=== PATIENT | male | born 1980 | race Caucasian/White ===

== ENCOUNTER 2024-05-10 07:50 | Emergency (ER) | payer SELFPAY ==
--- OUTSIDE RECORDS SUMMARY | 2024-05-10 07:54 | XMS REPORT | Continuity of Care Document ---
Author Name Unknown Address [address] [place] [address] [employer] Address [address] [place] [address] [address] [place] [address] Care Team Providers Care Fund Director Name Role Phone ILYA COELHO Attending Clinician Unavailabl e Encounters Start Date/Time End Date/Time Encounter Type Admission Type Attending Clinicians Care Facility Care Department Encounter ID Source 2024-05-09 07:29:00 2024-05-09 08:09:00 Emergency ER ILYA COELHO [facility] [id number] [facility]
--- NOTE | 2024-05-10 08:51 | RAD REPORT ---
EXAMINATION: CT ABDOMEN AND PELVIS WITHOUT CONTRAST CLINICAL INDICATION: Abdominal pain. Flank pain TECHNIQUE: CT abdomen and pelvis was performed, as per department protocol. IV contrast and oral was not administered.Axial, sagittal and coronal reconstructions were obtained. One or more of the following dose reduction techniques were used: Automated exposure control, adjustment of the mA and/o r kV according to the patient size, and/or iterative reconstruction. Unless otherwise specified, incidental findings do not require dedicated imaging follow-up. [id number]. COMPARISON: No prior exam. FINDINGS: The lack of intravenous and contrast limits the sensitivity of this exam for evaluation of solid visc eral organs, vascular structures, and bowel. The liver, spleen, pancreas, adrenals and kidneys appear grossly normal No evidence of diverticulitis Normal appendix Mild anterior subluxation L4 on L5. Spondylolysis L4 Small left and [id number] right inguinal hernias containing fat IMPRESSION: No acute abnormality displayed
[2024-05-10] MEDS ORDERED: KETOROLAC 30 MG/ML INJ ONE (08:53)
[2024-05-10 08:56] LABS: Specific Gravity 1.012 (1.005-1.030); Urine Bilirubin NEGATIVE (Negative); Urine Blood Negative (Negative); Urine Clarity Clear (Clear); Urine Color Colorless (Yellow); Urine Glucose NEGATIVE (Negative); Urine Ketones NEGATIVE (Negative); Urine Microscopic Reflex YN NO UMIC; Urine Nitrite NEGATIVE (Negative); Urine Protein NEGATIVE (Negative); Urine Urobilinogen Normal (Normal); Urine pH 7.5 (5.0-7.0)
[2024-05-10 09:27] LABS: Absolute Eosinophils 0.1 K/uL (0-0.5); Absolute Lymphocytes (CBC) 2.2 K/uL (0.7-4.9); Absolute Monocytes 0.8 K/uL (0.1-1.3); Absolute Neutrophil 7.5 K/uL (1.8-8.0); Basophils % 0.4 % (0-1.3); Eosinophils % 0.9 % (0-4.4); Hematocrit 46.6 % (39.6-49.0); Hemoglobin 16.3 g/dL (13.6-17.9); Lymphocytes % 20.8 % (15.3-44.8); MCH 32.1 pg (27.0-35.0); MCV 91.6 fL (80-100); MPV 8.5 fL (7.6-11.3); Monocytes % 7.9 % (3.3-12.3); Nucleated Red Blood Cells % 0.1 % (0-0); Platelets 263 thou/uL (152-406); RBC Red Blood Cell Count 5.08 M/uL (4.33-5.43); Red Cell Distribution Width 13.1 % (12.1-15.2)
[2024-05-10 09:28] LABS: ALT/SGPT 24 U/L (16-61); AST/SGOT < 10 U/L (15-37); Albumin 3.6 g/dL (3.4-5.0); Alkaline Phosphatase 60 U/L (45-117); Anion Gap 6.9 mEq/L (5.0-15.0); BUN Blood Urea Nitrogen 9 mg/dL (7-18); Bicarbonate 32 mEq/L (21-32); Bilirubin Total 0.4 mg/dL (0.2-1.0); Creatine Phosphokinase 77 U/L (39-308); Globulin 3.5 g/dL (2.3-3.5); Glomerular Filtration Rate 109 ml/min (=/>90); Glucose Level 114 mg/dL (74-106); Lipase 251 U/L (13-75); Potassium 3.9 mEq/L (3.5-5.1); Protein, Total 7.1 g/dL (6.4-8.2); Sodium Level 141 mEq/L (136-145)
--- NOTE | 2024-05-10 10:00 | ER ---
Nurse's Notes [facility] Name: Estevan Silva Age: 43 yrs Sex: Male : 1980 Arrival Date: 05/10/2024 Time: 07:50 Bed 9 Private MD: Diagnosis: Low back pain Presentation: 05/10 08:00 Chief complaint: Patient states: kidney pain, worse on right than left, has been going iw on for a while, thought it was from my slipped disc, and my urine is dark, pain for 2 months. Coronavirus screen: At this time, the client does not indicate any symptoms associated with coronavirus-19. Ebola Screen: No symptoms or risks identified at this time. Initial Sepsis Screen: Does the patient meet any 2 criteria? No. Patient's initial sepsis screen is negative. Does the patient have a suspected source of infection? No. Patient's initial sepsis screen is negative. Risk Assessment: Do you want to hurt yourself or someone else? Patient reports no desire to harm self or others. Onset of symptoms was February 2024. 08:00 Method Of Arrival: Ambulatory iw 08:00 Acuity: KRISTINE 3 iw Historical: - Allergies: 08:02 PENICILLINS; iw - Home Meds: 08:02 None [Active]; iw - PMHx: 08:02 None; iw - PSHx: 08:02 None; iw - Immunization history:: Adult Immunizations Adult Immunizations not up to date. - Infectious Disease History:: Denies. - Social history:: Smoking status: Patient reports the use of cigarette tobacco products, smokes one pack cigarettes per day. - Family history:: not pertinent. Screenin:09 [facility] ED Fall Risk Assessment (Adult) History of falling in the last 3 months, iw including since admission No falls in past 3 months (0 pts) Confusion or Disorientation No (0 pts) Intoxicated or Sedated No (0 pts) Impaired Gait No (0 pts) Mobility Assist Device Used No (0 pt) Altered Elimination No (0 pt) Score/Fall Risk Level 0 - 2 = Low Risk Oriented to surroundings, Maintained a safe environment. Abuse screen: Denies threats or abuse. Nutritional screening: No deficits noted. Tuberculosis screening: No symptoms or risk factors identified. Assessment: 08:07 General: Appears uncomfortable, Behavior is cooperative. Pain: Complains of pain in iw lumbar area, left low back and right low back. Neuro: Level of Consciousness is awake, alert, obeys commands, Oriented to person, place, time, situation, Moves all extremities. Cardiovascular: Patient's skin is warm and dry. Respiratory: Respiratory effort is even, unlabored, Respiratory pattern is regular. GI: Abdomen is non-distended. : Reports dark colored urine. Derm: Skin is healthy with good turgor. Musculoskeletal: Range of motion: intact in all extremities. 08:08 Reassessment: pt ambulatory to bathroom with steady gait. iw 09:30 Reassessment: Patient appears in no apparent distress at this time. Patient and/or iw family updated on plan of care and expected duration. Pain level reassessed. Patient is alert, oriented x 3, equal unlabored respirations, skin warm/dry/pink. 10:40 Reassessment: Patient appears in no apparent distress at this time. iw Vital Signs: 08:00 BP 142 / 89; Pulse 63; Resp 16; Temp 98.1; Pulse Ox 100% on R/A; Weight 104.33 kg; iw Height 6 ft. 0 in. ; Pain 7/10; 08:00 Body Mass Index 31.19 (104.33 kg, 182.88 cm) iw 08:00 Pain Scale: Adult iw ED Course: 07:52 Patient arrived in ED. mr 08:01 Triage completed. iw 08:03 Arm band placed on. iw 08:05 Shantanu Mujica MD is Attending Physician. rt 08:07 Mabel Trotter, RN is Primary Nurse. iw 08:07 Patient has correct armband on for positive identification. Provided Education on: . iw 08:43 Urinalysis w/ reflexes Sent. nh2 08:45 CT Abd/Pelvis - Without Contrast In Process Unspecified. EDMS 08:56 CBC with Diff Sent. nh2 08:56 CMP Sent. nh2 08:56 Lipase Sent. nh2 08:56 Urinalysis w/ reflexes Sent. nh2 08:56 Inserted saline lock: 20 gauge in right antecubital area, using aseptic technique. nh2 Blood collected. Flushed with 10 mL NS. 10:39 No provider procedures requiring assistance completed. IV discontinued, intact, iw bleeding controlled, No redness/swelling at site. Pressure dressing applied. Administered Medications: 09:04 Drug: TORadol - Ketorolac IVP 15 mg IVP once Route: IVP; Site: right antecubital; iw 10:40 Drug: Paradox PO 10 mg-325 mg 1 tabs PO once Route: PO; iw 10:40 Follow up: Response: Medication administered at discharge. iw 10:40 Follow up: Response: No adverse reaction; Medication administered at discharge. iw 10:41 Follow up: Response: No adverse reaction iw 10:40 Drug: Dexamethasone IVP 10 mg IVP once; (not to exceed 40 mg) Route: IVP; Site: right iw antecubital; 10:40 Follow up: Response: Medication administered at discharge. iw 10:41 Follow up: Response: No adverse reaction iw Medication: 08:09 VIS not applicable for this client. iw Outcome: :59 Discharge ordered by MD. rt 10:39 Discharged to home ambulatory, with family, iw 10:39 Condition: good 10:39 Discharge instructions given to patient, family, Instructed on discharge instructions, follow up and referral plans. Demonstrated understanding of instructions, follow-up care, wound care, Prescriptions given X 2, 10:40 Patient left the ED. iw Signatures: Dispatcher [employer] EDMS Veda Martinez, Reg Reg mr Mabel Trotter, JULITA RN iw Shantanu Mujica MD MD rt Guillermo Deal, [facility] Corrections: (The following items were deleted from the chart) 08:02 08:00 Pulse 63bpm; Resp 16bpm; Pulse Ox 100% RA; Temp 98.1F; iw iw
--- NOTE | 2024-05-10 10:00 | EDPHYS ---
Physician Documentation [facility] Name: Estevan Silva Age: 43 yrs Sex: Male : 1980 Arrival Date: 05/10/2024 Time: 07:50 Bed 9 Private MD: ED Physician Shantanu Mujica HPI: 05/10 11:54 This 43 yrs old Male presents to ER via Ambulatory with complaints of Back Pain, rt Urinary Problem. 11:54 Patient presents to the ED with right-sided back pain, nonradiating has been chronic rt but worse over the past week. Patient reports a darker colored urine at that time but states that his urine is now clear. Denies abdominal pain, nausea, vomiting. Denies of acute complaints, symptoms are moderate in severity, no other aggravating or alleviating factors. Historical: - Allergies: 08:02 PENICILLINS; iw - Home Meds: 08:02 None [Active]; iw - PMHx: 08:02 None; iw - PSHx: 08:02 None; iw - Immunization history:: Adult Immunizations Adult Immunizations not up to date. - Infectious Disease History:: Denies. - Social history:: Smoking status: Patient reports the use of cigarette tobacco products, smokes one pack cigarettes per day. - Family history:: not pertinent. ROS: 11:54 Constitutional: Negative for fever, chills, and weight loss, Cardiovascular: Negative rt for chest pain, palpitations, and edema, Respiratory: Negative for shortness of breath, cough, wheezing, and pleuritic chest pain, Abdomen/GI: Negative for abdominal pain, nausea, vomiting, diarrhea, and constipation, MS/Extremity: Negative for injury and deformity, Skin: Negative for injury, rash, and discoloration, Neuro: Negative for headache, weakness, numbness, tingling, and seizure, 11:54 Back: Positive for pain at rest, Negative for injury or acute deformity, Exam: 11:54 Constitutional: This is a well developed, well nourished patient who is awake, alert, rt and in no acute distress. Head/Face: Normocephalic, atraumatic. Chest/axilla: Normal chest wall appearance and motion. Nontender with no deformity. No lesions are appreciated. Cardiovascular: Regular rate and rhythm with a normal S1 and S2. No gallops, murmurs, or rubs. Normal PMI, no JVD. No pulse deficits. Respiratory: Lungs have equal breath sounds bilaterally, clear to auscultation and percussion. No rales, rhonchi or wheezes noted. No increased work of breathing, no retractions or nasal flaring. Abdomen/GI: Soft, non-tender, with normal bowel sounds. No distension or tympany. No guarding or rebound. No evidence of tenderness throughout. Skin: Warm, dry with normal turgor. Normal color with no rashes, no lesions, and no evidence of cellulitis. MS/ Extremity: Pulses equal, no cyanosis. Neurovascular intact. Full, normal range of motion. 11:54 Back: Tenderness to the right lower paraspinal region, no midline tenderness, no CVAT, Vital Signs: 08:00 BP 142 / 89; Pulse 63; Resp 16; Temp 98.1; Pulse Ox 100% on R/A; Weight 104.33 kg; iw Height 6 ft. 0 in. ; Pain 7/10; 08:00 Body Mass Index 31.19 (104.33 kg, 182.88 cm) iw 08:00 Pain Scale: Adult iw MDM: 08:12 Medical Screening Exam initiated rt 11:54 Differential diagnosis: Low back pain, disc herniation, pyelonephritis, ureteral stone. rt Data reviewed: vital signs, nurses notes, lab test result(s), radiologic studies. I considered the following discharge prescriptions or medication management in the emergency department Medications were administered in the Emergency Department. See MAR. Independent interpretation of the following test(s) in the Emergency Department CT Scan: My interpretation is No ureteral stone seen on interpretation of CT scan images. Counseling: I had a detailed discussion with the patient and/or guardian regarding the historical points, exam findings, and any diagnostic results supporting the discharge/admit diagnosis, lab results, radiology results, the need for outpatient follow up, to return to the emergency department if symptoms worsen or persist or if there are any questions or concerns that arise at home. Response to treatment: the patient's symptoms have markedly improved after treatment. 05/10 08:23 Order name: CBC with Diff; Complete Time: 09:49 rt 05/10 08:23 Order name: CMP; Complete Time: :49 rt 05/10 08:23 Order name: Lipase; Complete Time: :49 rt 05/10 08:23 Order name: Urinalysis w/ reflexes; Complete Time: 09:49 rt 05/10 08:23 Order name: CPK; Complete Time: 09:49 rt 05/10 08:23 Order name: CT Abd/Pelvis - Without Contrast; Complete Time: 08:54 rt 05/10 08:23 Order name: IV Saline Lock; Complete Time: 09:04 rt 05/10 08:23 Order name: Labs collected and sent; Complete Time: 09:04 rt Administered Medications: 09:04 Drug: TORadol - Ketorolac IVP 15 mg IVP once Route: IVP; Site: right antecubital; iw 10:40 Drug: Capitola PO 10 mg-325 mg 1 tabs PO once Route: PO; iw 10:40 Follow up: Response: Medication administered at discharge. iw 10:40 Follow up: Response: No adverse reaction; Medication administered at discharge. iw 10:41 Follow up: Response: No adverse reaction iw 10:40 Drug: Dexamethasone IVP 10 mg IVP once; (not to exceed 40 mg) Route: IVP; Site: right iw antecubital; 10:40 Follow up: Response: Medication administered at discharge. iw 10:41 Follow up: Response: No adverse reaction iw Disposition Summary: 05/10/24 09:59 Discharge Ordered Notes: Location: Home rt Problem: new rt Symptoms: have improved rt Condition: Stable rt Diagnosis - Low back pain rt Followup: rt - With: Private Physician - When: 2 - 3 days - Reason: Discharge Instructions: - Discharge Summary Sheet rt Forms: - Work release form rt - Family Work Release rt - Medication Reconciliation Form rt - Antibiotic Education rt - Prescription Opioid Use rt - Patient Portal Instructions rt - Leadership Thank You Letter rt Prescriptions: - Cyclobenzaprine 10 mg Oral tablet - take 1 tablet ORAL route every 8 hours As needed; 15 tablet; Refills: 0, rt Product Selection Permitted - Tramadol 50 mg Oral tablet - take 1 tablet ORAL route every 8 hours as needed; 15 tablet; Refills: 0, rt Product Selection Permitted - Medrol (Jordan) 4 mg Oral Tablets, Dose Pack - take 1 tablet ORAL route as directed - follow package instructions; 1 packet; rt Refills: 0, Product Selection Permitted Signatures: Dispatcher [employer] Mabel Kincaid RN RN iw [place], Ryan, MD MD rt Corrections: (The following items were deleted from the chart) 08:24 08:24 Abdomen Pelvis Wo [id number] ordered. EDMS EDMS
[2024-05-10] MEDS ORDERED: HYDROCODONE/APAP 10/325 TAB ONE (10:09)
[2024-05-10] MEDS ORDERED: dexAMETHasone 10 MG/ML VIAL ONE (10:09)
[2024-05-10 12:01] VITALS: BP 142/89; TEMP 98.1; O2SAT 100
== END 2024-05-10 10:40 | disposition home or self-care (01) ==
LOC: ER 07:50
DX: M54.50 Low back pain, unspecified (principal)
CPT/HCPCS: 36415; 74176; 80053; 81003; 82550; 83690; 85025; 96374; 96375; 99284; J1100